=== PATIENT | female | born 1955 | race Caucasian/White ===

== ENCOUNTER 2022-10-25 06:08 | Inpatient (IN) | payer MEDICAID ==
[~2022-10-25] VITALS: Ht 162.6 cm; Wt 83.8 kg
[~2022-10-25 06:08] MED LIST: ATOR40TA52 PO; CYAN-17 PO; MULT1TAB70 PO; NAP500T PO
[2022-10-25] MEDS ORDERED: ceFAZolin 1GM/50ML 100 ML IV ONE (06:27)
[2022-10-25] MEDS ORDERED: TRANEXAMIC ACID 20 ML ONE (06:38)
[2022-10-25] MEDS ORDERED: BUPIVACAINE W/ EPINEPH 0.25% INJ 50ML MDV ONE (06:39)
[2022-10-25] MEDS ORDERED: VANCOMYCIN HCL 1000 MG VL ONE (06:46)
[2022-10-25] MEDS ORDERED: fentaNYL CITRATE 100 MCG/2 ML VL ONE (06:57)
[2022-10-25] MEDS ORDERED: MORPHINE SULF PF 5 MG/10 ML VIAL ONE (06:57)
[2022-10-25] MEDS ORDERED: KETAMINE HCL 10 ML ONE (06:57)
[2022-10-25] MEDS ORDERED: MIDAZOLAM HCL 2MG/2ML 2ml VIAL (1mg/ml) ONE (06:57)
[2022-10-25] MEDS ORDERED: GLYCOPYRROLATE 0.2 MG/ML 1ML VIAL ONE (06:58)
[2022-10-25] MEDS ORDERED: PROPOFOL 10 MG/ML 20 ML IV ONE ×2 (06:58→07:02)
[2022-10-25] MEDS ORDERED: PHENYLEPHRINE HCL 10 MG/ML VL ONE (06:58)
[2022-10-25] MEDS ORDERED: ONDANSETRON HCL 4 MG/2 ML VIAL ONE (06:58)
[2022-10-25] MEDS ORDERED: ePHEDrine SULFATE 50 MG/ML AMP ONE (06:58)
[2022-10-25] MEDS ORDERED: BUPIVACAINE/DEXTROSE MPF 0.75% 2 ML AMP IT ONE (06:58)
[2022-10-25] MEDS ORDERED: ROPIVACAINE 0.5% (5MG/ML) 20ML AMPULE IJ ONE ×2 (07:12→07:43)
[2022-10-25] MEDS ORDERED: FAMOTIDINE (10MG/ML) 2ML VL IV ONE (07:31)
[2022-10-25] MEDS ORDERED: EPINEPHrine HCL 1 MG/1 ML AMP ONE (07:42)
[2022-10-25] MEDS ORDERED: ROCURONIUM 10MG/ML 10ML VIAL IV ONE (07:56)
[2022-10-25] MEDS ORDERED: HYDROmorphone HCL 2 MG/ML VL/or syr ONE (08:09)
[2022-10-25] MEDS ORDERED: SUGAMMADEX 200mg/2ml Vial (100MG/ML) IV ONE (08:21)
[2022-10-25] MEDS ORDERED: KETOROLAC TROMETH 30 MG/ML 1ML VIAL ONE (08:44)
[2022-10-25] MEDS ORDERED: ACETAMINOPHEN 325 MG TAB PO PRN (09:45)
[2022-10-25] MEDS: D5W/LACTATED RINGERS 1,000 ML IV SCH ×2 (09:45→19:45)
[2022-10-25] MEDS ORDERED: MEPERIDINE HCL (50 MG/ML) 1 ML VIAL ONE (09:52)
[2022-10-25] MEDS ORDERED: ASPirin 81 mg TAB PO SCH (10:00)
[2022-10-25] MEDS ORDERED: METOCLOPRAMIDE HCL 5MG/ml INJ 2ml VIAL IV PRN (10:15)
[2022-10-25] MEDS ORDERED: ONDANSETRON HCL 4 MG/2 ML VIAL IV PRN ×2 (10:15→12:00)
[2022-10-25] MEDS: HYDROmorphone HCL 2 MG/ML VL/or syr IV PRN ×4 (10:36→11:41)
[2022-10-25] MEDS: KETOROLAC TROMETH 30 MG/ML 1ML VIAL IV SCH ×2 (14:46→18:00)
[2022-10-25] MEDS: ceFAZolin 2 GM/D5W100ml 100 ML IV SCH ×2 (15:56→21:39)
[2022-10-25 16:20] VITALS: BP 147/80
[2022-10-25] MEDS: ACETAMINOPHEN 325 MG TAB PO SCH ×2 (17:46→18:00)
[2022-10-25 20:00] VITALS: BP 127/70
[2022-10-25] MEDS: oxyCODONE HCL 5MG TAB PO PRN (20:37)
[2022-10-25] MEDS: PREGABALIN 25 MG CAP PO SCH ×2 (21:39→22:11)
[2022-10-25] MEDS: ATORVASTATIN 20 MG TAB PO SCH (21:39)
[2022-10-25 22:00] VITALS: BP 127/70
[2022-10-26] MEDS: ACETAMINOPHEN 325 MG TAB PO SCH ×5 (00:22→23:56)
[2022-10-26] MEDS: KETOROLAC TROMETH 30 MG/ML 1ML VIAL IV SCH ×5 (00:22→23:56)
[2022-10-26 05:00] VITALS: BP 112/61
[2022-10-26] MEDS: D5W/LACTATED RINGERS 1,000 ML IV SCH ×2 (06:02→17:05)
[2022-10-26 08:30] VITALS: BP 129/71
[2022-10-26 08:51] LABS: Basophils # (auto) 0 10 ^3/uL (0-0.2); Basophils % (auto) 0.2 % (0.0-2.0); Eosinophils # (auto) 0 10 ^3/uL (0-0.8); Hematocrit 34.5 % (36.0-46.0); Hemoglobin 11.7 g/dL (12.2-16.2); Lymphocytes # (auto) 2.5 10 ^3/uL (0.4-5.4); Lymphocytes % (auto) 17.2 % (10.0-50.0); Mean Corpuscular Hgb Conc. 33.9 g/dL (32.0-36.0); Mean Corpuscular Volume 91.5 fL (80.0-100.0); Monocytes # (auto) 1.1 10 ^3/uL (0-1.3); Monocytes % (auto) 7.8 % (0.0-12.0); Neutrophils # (auto) 10.8 10 ^3/uL (1.6-8.6); Neutrophils % (auto) 74.8 % (37.0-80.0); Red Blood Cells 3.77 10^6/uL (4.0-5.20); Red Cell Distribution Width 13.5 % (11.8-14.3); White Blood Cell 14.4 10^3/uL (4.4-10.8)
[2022-10-26] MEDS: PREGABALIN 25 MG CAP PO SCH ×2 (09:53→20:51)
[2022-10-26] MEDS: ASPirin 81 mg TAB PO SCH ×2 (09:53→20:51)
[2022-10-26] MEDS: oxyCODONE HCL 5MG TAB PO PRN ×2 (09:54→20:50)
[2022-10-26 12:30] VITALS: BP 143/76
[2022-10-26 16:53] VITALS: BP 152/72
[2022-10-26 20:00] VITALS: BP 144/81
[2022-10-26] MEDS: ATORVASTATIN 20 MG TAB PO SCH (20:51)
[2022-10-26 22:00] VITALS: BP 144/81
[2022-10-27] MEDS: D5W/LACTATED RINGERS 1,000 ML IV SCH ×4 (01:45→23:56)
[2022-10-27] MEDS: oxyCODONE HCL 5MG TAB PO PRN ×4 (02:39→21:55)
[2022-10-27 05:00] VITALS: BP 121/80
[2022-10-27] MEDS: ACETAMINOPHEN 325 MG TAB PO SCH ×4 (05:40→23:46)
[2022-10-27] MEDS: KETOROLAC TROMETH 30 MG/ML 1ML VIAL IV SCH ×4 (05:41→23:46)
[2022-10-27 08:55] VITALS: BP 162/88
[2022-10-27] MEDS: PREGABALIN 25 MG CAP PO SCH ×2 (09:44→21:54)
[2022-10-27] MEDS: ASPirin 81 mg TAB PO SCH ×2 (09:44→21:54)
[2022-10-27 10:54] VITALS: BP 125/72
[2022-10-27 11:03] LABS: Hepatitis C Antibody Negative (Negative)
[2022-10-27 13:00] VITALS: BP_SYST 122; BP_SYST 131; BP_SYST 162; BP_DIAS 82; BP_DIAS 88; BP_DIAS 96
[2022-10-27 17:02] VITALS: BP 127/83
[2022-10-27] MEDS: ATORVASTATIN 20 MG TAB PO SCH (21:54)
[2022-10-27 22:00] VITALS: BP 116/66
[2022-10-28 05:00] VITALS: BP 109/61
[2022-10-28] MEDS: ACETAMINOPHEN 325 MG TAB PO SCH ×2 (05:46→12:05)
[2022-10-28] MEDS: KETOROLAC TROMETH 30 MG/ML 1ML VIAL IV SCH ×2 (05:46→12:05)
[2022-10-28 08:05] VITALS: BP 140/77
[2022-10-28 09:00] VITALS: BP 140/77
[2022-10-28] MEDS: PREGABALIN 25 MG CAP PO SCH (09:22)
[2022-10-28] MEDS: ASPirin 81 mg TAB PO SCH (09:22)
[2022-10-28 13:00] VITALS: BP 101/60
[2022-10-28 16:31] VITALS: BP 131/74
[2022-10-28] MEDS: oxyCODONE HCL 5MG TAB PO PRN (17:06)
== END 2022-10-28 17:40 | DRG 326 ==
LOC: SUR 06:08 → OVERFLOW 09:35 → WEST WING 14:57
PROVIDERS: ADMIT Orthopaedic Surgery; ATTEND Orthopaedic Surgery
PROC: 3E0T3BZ Introduction of Anesthetic Agent into Peripheral Nerves and Plexi, Percutaneous Approach (ICD-10-PCS; 2022-10-25)
PROC: 0SRD069 Replacement of Left Knee Joint with Oxidized Zirconium on Polyethylene Synthetic Substitute, Cemented, Open Approach (ICD-10-PCS; principal; 2022-10-25 07:42)
DX: M17.12 Unilateral primary osteoarthritis, left knee (principal)
CPT/HCPCS: 36415; 73562; 82962; 85025; 86803; 86850; 86900; 86901; 87340; 97110; 97116; 97163; 97530; G0378; J0171; J0690; J1885; J2250; J2405; J2704; J3490

== ENCOUNTER 2023-11-29 13:08 | Emergency (ER) | payer OTHER, MEDICAID ==
[~2023-11-29] VITALS: Ht 167.6 cm; Wt 61.0 kg
[2023-11-29 14:07] VITALS: PULSE 71; RESP 16; O2SAT 93
[2023-11-29 14:10] VITALS: TEMP 98.5
[2023-11-29] MEDS: SODIUM CHLORIDE 0.9% 1,000 ML IV ONE (15:00)
[2023-11-29] MEDS: ONDANSETRON HCL 4 MG/2 ML VIAL IV ONE (15:00)
[2023-11-29] MEDS: MORPHINE SULFATE 4 MG/ML SYR/VIAL IV ONE (15:04)
[2023-11-29 15:27] LABS: Basophils # (auto) 0.1 10 ^3/uL (0-0.2); Basophils % (auto) 0.7 % (0.0-2.0); Eosinophils # (auto) 0.1 10 ^3/uL (0-0.8); Eosinophils % (auto) 0.5 % (0.0-7.0); Hematocrit 40.2 % (36.0-46.0); Hemoglobin 13.6 g/dL (12.2-16.2); Lymphocytes # (auto) 1.9 10 ^3/uL (0.4-5.4); Lymphocytes % (auto) 11.9 % (10.0-50.0); Mean Corpuscular Hemoglobin 31.4 pg (28.0-32.0); Mean Corpuscular Hgb Conc. 33.8 g/dL (32.0-36.0); Mean Corpuscular Volume 92.8 fL (80.0-100.0); Monocytes # (auto) 0.9 10 ^3/uL (0-1.3); Monocytes % (auto) 5.2 % (0.0-12.0); Neutrophils # (auto) 13.4 10 ^3/uL (1.6-8.6); Neutrophils % (auto) 81.7 % (37.0-80.0); Red Blood Cells 4.33 10^6/uL (4.0-5.20); Red Cell Distribution Width 13.7 % (11.8-14.3); White Blood Cell 16.4 10^3/uL (4.4-10.8)
[2023-11-29 15:40] LABS: Chloride 111 mmol/L (98-107); Potassium 4.2 mmol/L (3.5-5.1); Sodium 139 mmol/L (136-145)
[2023-11-29 15:41] LABS: Anion Gap 1 (5-15); Carbon Dioxide 27 mmol/L (20-30)
[2023-11-29 15:42] LABS: Calcium 9.5 mg/dL (8.5-10.1)
[2023-11-29 15:46] LABS: Glucose 113 mg/dL (74-106)
[2023-11-29 15:47] LABS: BUN/Creatinine Ratio 33.9 (10.0-20.0); Blood Urea Nitrogen 21 mg/dL (9-23)
[2023-11-29 16:07] LABS: Partial Thromboplastin Time 25.4 SEC (24.5-34.5); Prothrombin Time 10.6 sec (9.3-11.8)
[2023-11-29] MEDS ORDERED: NITROGLYCERIN 0.4 MG SL TAB SL PRN (17:00)
[2023-11-29] MEDS ORDERED: HYDROcodone-ACET 5/325MG TAB PO PRN (17:00)
[2023-11-29] MEDS ORDERED: MORPHINE SULFATE INJ 2 MG/ml SYRG IV PRN (17:00)
[2023-11-29] MEDS ORDERED: SOD CHL 0.45% 1,000 ML IV SCH (17:00)
[2023-11-29] MEDS ORDERED: ACETAMINOPHEN 325 MG TAB PO PRN (17:00)
[2023-11-29] MEDS: cefTRIAXone 1GM/50ML D5W 50 ML IV ONE (17:08)
[2023-11-29 17:16] LABS: Urine Bacteria None Seen /hpf (None Seen)
[2023-11-29] MEDS: SODIUM CHLORIDE 0.9% 1,000 ML IV SCH (17:31)
[2023-11-29 17:32] LABS: Urine Blood Negative /uL (Negative); Urine Clarity Clear (Clear); Urine Color Light-Yellow (Yellow); Urine Protein, UAD Negative (Negative); Urine Urobilinogen Normal (Negative); Urine WBC 1 /hpf (0 - 5)
[2023-11-29 20:31] VITALS: PULSE 71; RESP 16; O2SAT 93
[2023-11-29] MEDS: SENNA 8.6 MG TAB PO SCH (22:22)
[2023-11-29] MEDS: ATORVASTATIN 20 MG TAB PO SCH (22:22)
[2023-11-29 22:35] VITALS: PULSE 71; RESP 16; O2SAT 93
[2023-11-30 00:35] VITALS: PULSE 71; RESP 16; O2SAT 93
[2023-11-30 01:01] VITALS: PULSE 71; RESP 16; O2SAT 93
[2023-11-30] MEDS ORDERED: MORPHINE SULFATE INJ 2 MG/ml SYRG ONE (01:59)
[2023-11-30 02:00] VITALS: O2SAT 98
[2023-11-30] MEDS ORDERED: ONDANSETRON HCL 4 MG/2 ML VIAL ONE (02:00)
[2023-11-30] MEDS: ONDANSETRON HCL 4 MG/2 ML VIAL IV PRN (02:02)
[2023-11-30 02:04] VITALS: BP 146/82; PULSE 75; RESP 16
[2023-11-30] MEDS: MORPHINE SULFATE INJ 2 MG/ml SYRG IV PRN (02:04)
[2023-11-30] MEDS ORDERED: FAMOTIDINE 20 MG TAB PO SCH (10:00)
[2023-11-30] MEDS ORDERED: PATIENTS OWN MEDICATION (Atorvastatin Calcium 40 MG) PO SCH (10:00)
== END 2023-11-30 02:30 | disposition short-term general hospital (02) ==
LOC: EDUNIT# 13:08 → EDBD 13:08 → ER 13:08 → UNDOADMIN 16:58 → OVERFLOW 16:58 → ER 11-30 02:30
DX: S72.492A Other fracture of lower end of left femur, initial encounter for closed fracture (principal); F17.210 Nicotine dependence, cigarettes, uncomplicated; Z98.890 Other specified postprocedural states; Z79.899 Other long term (current) drug therapy; W01.0XXA Fall on same level from slipping, tripping and stumbling without subsequent striking against object, initial encounter; Y93.89 Activity, other specified; Y92.89 Other specified places as the place of occurrence of the external cause; Y99.8 Other external cause status
CPT/HCPCS: 36415; 73562; 80048; 81001; 85025; 85610; 85730; 87086; 96361; 96365; 96375; 96376; 99285; J0696; J2270; J2405; J7030